=== PATIENT | female | born 1975 | race Two or more races ===

== ENCOUNTER 2018-06-11 10:39 | Outpatient (CLI) | payer OTHER ==
[~2018-06-11] VITALS: Ht 160 cm; Wt 56.7 kg
== END 2018-06-11 11:07 | disposition home or self-care (01) ==
LOC: LAB 10:39
DX: I10 Essential (primary) hypertension (principal); C50.912 Malignant neoplasm of unspecified site of left female breast

== ENCOUNTER 2018-06-21 06:53 | Inpatient (IN) | payer OTHER ==
[~2018-06-21] VITALS: Ht 172.7 cm; Wt 56.7 kg
== END 2018-06-22 14:33 | disposition home or self-care (01) | DRG 581 ==
LOC: CIR.AMB 06:53 → SURG 18:52 → CIR.AMB 06-25 08:16
PROVIDERS: Plastic Surgery; ADMIT Surgery
PROC: 0HHV0NZ Insertion of Tissue Expander into Bilateral Breast, Open Approach (ICD-10-PCS; 2018-06-21)
PROC: 07B60ZX Excision of Left Axillary Lymphatic, Open Approach, Diagnostic (ICD-10-PCS; principal; 2018-06-21 12:45)
PROC: 0HTV0ZZ Resection of Bilateral Breast, Open Approach (ICD-10-PCS; 2018-06-21 12:45)
DX: C50.212 Malignant neoplasm of upper-inner quadrant of left female breast (principal); Z90.13 Acquired absence of bilateral breasts and nipples

== ENCOUNTER 2018-10-04 06:10 | Day surgery (SDC) | payer OTHER | END 2018-10-04 14:08 | disposition home or self-care (01) | LOC: CIR.AMB 06:10 | PROVIDERS: Plastic Surgery | PROC: 0HPT0JZ Removal of Synthetic Substitute from Right Breast, Open Approach (ICD-10-PCS; 2018-10-04) | PROC: 0HRV0JZ Replacement of Bilateral Breast with Synthetic Substitute, Open Approach (ICD-10-PCS; 2018-10-04) | PROC: 0H0V0KZ Alteration of Bilateral Breast with Nonautologous Tissue Substitute, Open Approach (ICD-10-PCS; 2018-10-04) | PROC: 0HPU0JZ Removal of Synthetic Substitute from Left Breast, Open Approach (ICD-10-PCS; principal; 2018-10-04 07:00) | DX: C50.412 Malignant neoplasm of upper-outer quadrant of left female breast (principal); Z90.13 Acquired absence of bilateral breasts and nipples | CPT/HCPCS: 19328; 19342; 19366; C1789 ==

== ENCOUNTER 2024-08-10 06:15 | Day surgery (SDC) | payer OTHER ==
[2024-08-10] MEDS ORDERED: DIPHENHYDRAMINE HCL 50 MG/ML VIAL 1ML IV ONE (08:30)
[2024-08-10] MEDS ORDERED: MIDAZOLAM HCL 2 MG/2 ML VIAL IV ONE (08:30)
[2024-08-10] MEDS ORDERED: fentaNYL CITRATE 50 MCG/ML AMPUL IV PUSH ONE (08:30)
[2024-08-10] MEDS ORDERED: ONDANSETRON HCL 2 MG/ML VIAL IV ONE (08:30)
== END 2024-08-10 10:30 | disposition home or self-care (01) ==
LOC: AMB-ENDOS 06:15
PROVIDERS: ATTEND Colon & Rectal Surgery
DX: K63.5 Polyp of colon (principal); K64.8 Other hemorrhoids; Z12.11 Encounter for screening for malignant neoplasm of colon; R15.9 Full incontinence of feces

== ENCOUNTER 2025-02-23 06:00 | Day surgery (SDC) | payer OTHER ==
[2025-02-17 09:02] VITALS: BP 139/79
[2025-02-17 09:41] LABS: COVID-19 AG NEGATIVE (NEGATIVE)
[~2025-02-23] VITALS: Ht 160 cm; Wt 61.2 kg
[~2025-02-23 06:00] MED LIST: TAMOXIFEN CITRA20 MG PO
[2025-02-23] MEDS ORDERED: METRONIDAZOLE/SODIUM CHLORIDE 500 MG/100 ML PIGGYBACK IV ONE (07:08)
[2025-02-23] MEDS ORDERED: CEFAZOLIN SODIUM 1,000 MG VIAL ONE (07:09)
[2025-02-23] MEDS ORDERED: POVIDONE-IODINE 118 ML BOTT TOP ONE (07:20)
== END 2025-02-23 11:10 | disposition home or self-care (01) ==
LOC: CIR.AMB 06:00
PROVIDERS: ATTEND Obstetrics & Gynecology Gynecologic Oncology
DX: N84.0 Polyp of corpus uteri (principal); Z91.040 Latex allergy status; Z85.3 Personal history of malignant neoplasm of breast